=== PATIENT | male | born 1955 | race Caucasian/White ===

== ENCOUNTER 2017-06-23 20:19 | Inpatient (IN) | payer OTHER ==
[~2017-06-23] VITALS: Ht 175.3 cm; Wt 113.4 kg
[~2017-06-23 20:19] MED LIST: ALDACTONE25 MG PO; ASPIRIN EC325 MG PO; CHLORTHALIDONE25 MG PO; GLYXAMBI 25 MG1 EACH PO; IBUPROFEN800 MG PO; LANTUS SOL100 UNIT/1 SUB-Q; LOVASTATIN40 MG PO; METFORMIN HCL1000 MG PO; METOPROLOL SUC100 MG PO; NIFEDIPINE ER60 MG PO; NORCO 5-325 TA1 EACH PO; TELMISARTAN80 MG PO
[2017-06-23] MEDS ORDERED: GLUCOPHAGE1000 MG PO (20:55)
[2017-06-23] MEDS ORDERED: LANTUS SOL100 UNIT/1 SUB-Q (20:56)
[2017-06-23] MEDS ORDERED: MICARDIS20 MG PO (20:56)
[2017-06-23] MEDS ORDERED: GLYXAMBI 25 MG1 EACH PO (20:56)
[2017-06-23] MEDS ORDERED: ASPIRIN EC325 MG PO (20:57)
[2017-06-23] MEDS ORDERED: FISH OIL 1,2001 EAC1 PO (20:57)
[2017-06-23] MEDS ORDERED: VITAMIN D-32000 UNIT PO (20:57)
[2017-06-23] MEDS ORDERED: LOVASTATIN40 MG PO (20:58)
[2017-06-23] MEDS ORDERED: METOPROLOL SUC100 MG PO (20:59)
[2017-06-23] MEDS ORDERED: FLUOCINONIDE15 G1 TOP (21:00)
[2017-06-23] MEDS ORDERED: PROCARDIA XL60 MG PO (21:01)
--- NOTE | 2017-06-23 22:30 | NUR ---
PT ARRIVED FROM THE ED VIA STREATCH. ADMISSION AND ASSESSMENT COMPLETED. PT UP TO THE BATHROOM INDEPENTDENTLY TWICE DURING ADMISSION WITH LIQUID BLOODY STOOL. MEDICATIONS GIVEN. PT TO BE NPO AT MIDNIGHT. AT BEDSIDE. CALL LIGHT WITHIN REACH.
--- NOTE | 2017-06-23 23:51 | NUR ---
PT'S AT BEDSIDE. CPAP SET UP BY RT AT BEDSIDE. PT AWAKE AND ALERT. NO FURTHER NEEDS AT THIS TIME. CALL LIGHT WITHIN PLACE.
--- NOTE | 2017-06-24 02:17 | NUR ---
IN TO PT'S ROOM FOR CBG AND VITALS. PT AWAKE WATCHING TV. DENIES ABD PAIN. NO FURTHER NEEDS AT THIS TIME. CALL LIGHT IN REACH.
--- NOTE | 2017-06-24 02:31 | NUR ---
IN TO PT ROOM, PT UP TO BATHROOM INDEPENDENTLY. TELE IN PLACE. IVF INFUSING. PT NPO. NO FURTHER NEEDS AT THIS TIME. CALL LIGHT WITHIN REACH.
--- NOTE | 2017-06-24 04:21 | NUR ---
PT WAS ADMITTED FROM THE ER AT 2230 LAST NIGHT FOR A LOWER GI BLEED. AWAITING CONSULT FROM DR. STUART. PT HAS BEEN UP TO THE BATHROOM INDEPENDENTLY. HAS HAD SEVERAL LIQUID BLOODY STOOL. DENIES ABD PAIN AND NAUSEA. IVF AND PROTONIX DRIP INFUSING. NPO AT MIDNIGHT. YOLANDE, HOME CPAP IN ROOM. PT IS ALERT, ORIENTED AND PLEASANT.
--- NOTE | 2017-06-24 07:32 | NUR ---
MORNING ASSESSMENT DONE. PATIENT BLOOD GLUCOSE CHECK IS 166, REQUIRING 1 UNIT. HOLDING INSULIN AT THIS TIME RE: NPO STATUS. PATIENT DENIES PAIN, UP AD RAMONE TO HAVE LOOSE STOOL. PATIENT NOTES LESS BLOOD IN STOOL COMPARED TO PREVIOUS EPISODES.
--- NOTE | 2017-06-24 09:22 | NUR ---
PATIENT UP TO BM STOOL WITH SMALL AMOUNT OF BRIGHT RED BLOOD IN IT. IV PROTONIX CONTINUED FOR ONE MORE BAG. DR. PEREZ IN TO SEE PATIENT. PATIENT TO HAVE MIRILAX BOWEL PREP THIS MORNING.
--- NOTE | 2017-06-24 10:13 | NUR ---
PATIENT UP TO BATHROOM TO RADHA RED COAGULATED BLOOD. DR. PEREZ AND DR. STUART NOTIFIED. PATIENT HAS DRANK BOWEL PREP.
--- NOTE | 2017-06-24 11:14 | NUR ---
DR. STUART IN TO SEE PATIENT. PATIENT TO HAVE CLEAR LIQUIDS, NPO AT 3PM, PLAN TO SCOPE AT 7PM.
--- NOTE | 2017-06-24 11:30 | NUR ---
PT SLEEPING. STAFF ASKED NOT TO WAKEN HIM. STATING HE WAS UP ALOT WITH BOWEL PREP AND WAS VERY WIPED OUT.
--- NOTE | 2017-06-24 11:45 | NUR ---
SCHEDULED PTS OR CASE PER DRS ORDERS WITH OR CHARGE NURSE DEMARIO LANDRY.
[2017-06-24] MEDS ORDERED: FENOFIBRATE145 MG PO (11:56)
--- NOTE | 2017-06-24 11:57 | NUR ---
MED REC COMPLETE
--- NOTE | 2017-06-24 12:11 | NUR ---
PT LAYING IN BED, ALERT BUT NOT TOO TALKATIVE. SOMEWHAT HARD TO GET INFO OR CARRY ON A CONVERSATION. HIS SPOUSE BY HIS SIDE, MUCH DIFFERENT. SHE HELPED US BREAK THE ICE SO TO SPEAK, AND DISCOVERED WHAT HE DID AND REALIZED I HAD USED HIS SERVICES IN THE PAST. HE SAID FINALLY THAT HE WAS FEELING MUCH BETTER, AND I EXTENDED A BLESSING. WILL CONTINUE TO FOLLOW
--- NOTE | 2017-06-24 12:27 | NUR ---
6-PACK OF PLATELETS INFUSING, NO 15 MINUTE REACTION NOTED, IV RATE INCREASED TO 145ML/HOUR.
--- NOTE | 2017-06-24 16:00 | NUR ---
PT AGAIN IS SLEEPING. HAS CPAP IN PLACE, IS SNORING. DISCUSSED WITH STAFF AGAIN IF I CAN WAKE PATIENT UP. THEY STATED HE WAS VERY TIRED. STAFF STATES HE IS INDEPENDENT IN HIS ADL'S. LIVES WITH HIS . HAS A GOOD SUPPORT SYSTEM AND IS PLANNING TO RETURN HOME AT DISCHARGE. WILL FORGO ASSESSMENT AT THIS TIME.
--- NOTE | 2017-06-24 17:06 | NUR ---
PATIENT HAS FINISHED BOWEL PREP TODAY AND STOOL IS NOW CLEAR PALE GREEN. PATIENT CONTINUES TO BE NPO AFTER 3PM AND IS PLANNED TO HAVE COLONOSCOPY AT 7PM. IVF IS NS @ 75 PROTONIX DRIP IS CONTINUED. PATIENT IS AD RAMONE TO BATHROOM OR BEDSIDE COMMODE.
--- NOTE | 2017-06-24 18:49 | NUR ---
PATIENT TO SURGERY FOR COLON SCOPE.
--- NOTE | 2017-06-24 19:26 | NUR ---
06/24/171925 Guerline Arce 191-PATIENT ARRIVED TO PACU ON 3L CPAP REACTIVE RESPONDS TO QUESTIONS. DENIES PAIN OR NAUSEA. ABDOMEN SOFT AND ROUND ENCOURAGED TO PASS FLATUS. 1921-GLUCOSE CHECKED 123
--- NOTE | 2017-06-24 20:06 | NUR ---
PT ARRIVED BACK TO ROOM 112. ALERT AND ORIENTATED. DENIES PAIN. FOUND HEMMORIODS WHICH WILL NEED TO BE ADDRESSED LATER WITH DR. STUART. DR. STUART DISCUSSED THE FINDINGS WITH PT "JASON". TELE #7 IN SR @ 62. AFEBRILE. DR STUART STATED TO CONTACT DR. PEREZ FOR DISCHARGE PLANS. CONTACTED DR. PEREZ, WHO STATED TO KEEP PT OVERNIGHT. INFORMED PT AND OF SUCH CONVERSATION.
--- NOTE | 2017-06-24 22:48 | NUR ---
PT WITH CPAP ON, EYES CLOSED, BUT WOKE WHEN VITALS DONE. HAS VOIDED PRIOR TO THIS TIME, ATE SANDWICH AND PUDDING POST PROCEDURE. DENIES PAIN. WAS UP WITH SBA, STEADY ON FEET, DENIED DIZZINESS OR NAUSEA
--- NOTE | 2017-06-24 23:31 | NUR ---
PT CURRENTLY SLEEPING WITH CPAP MACHINE ON. WOKE EASILY FOR VS AT 2300. RESP EVEN AND UNLABORED.
--- NOTE | 2017-06-25 02:15 | NUR ---
PT MOSTLY SLEEPY, VITALS COMPLETED WITH PT WAKING UP FOR. HEARD PT PASSING GAS, BUT NO COMPLAINS OF ANY DISCOMFORT.
--- NOTE | 2017-06-25 03:45 | NUR ---
CALL LIGHT SOUNDED, PT WANTED SCD'S OFF SO HE COULD MOVE FREELY WITH TURNING. SAID HIS LEGS KEPT GETTING ALL TANGLED UP. USED THE URINAL WELL. CPAP CONTINUES, COMPLAINED OF RIGHT SHOULDER HURTING, CHRONIC PAIN IN SHOULDER DUE TO ROTATOR CUFF PROBLEMS. IV CONTINUES PER ORDER.
--- NOTE | 2017-06-25 06:02 | NUR ---
PT HAS MOSTLY SLEPT SINCE 2229 THIS SHIFT, WITH CPAP MACHINE ON. HE HAS USED THE URINAL X 1, WELL PASSED GAS. ONE PERSON SBA WHEN UP, IS STEADY ON FEET. NO BM'S, NO RECTAL BLEEDING NOTED TO THIS HOUR. HAS THE PICTURE OF THE COLONSCOPY, WELL THE HEMMORROID BOOKLET WHICH DR. STUART WROTE ABOUT A SPECIFIC CREAM TO PURCHASE AT [facility], FOR THE HEMMORROIDS. PT HAS NOT COMPLAINED OF NAUSEA, OR PAIN SINCE HE RETURNED TO THE FLOOR POST COLONSCOPY. IV CONTINUES AT 75 CC HOUR.
--- NOTE | 2017-06-25 08:21 | NUR ---
PATIENT WANTING TO D/C HOME, DOCTOR OK'D TELE AND IV TO COME OFF AT THIS TIME. IV IN THE RIGHT WRIST DC'D TIP INTACT. AM MEDICATION GIVEN AND ASSESSMENT COMPLETE. PATIENT HAS NO C/O PAIN AND NO BLEEDING AT THIS TIME.
[2017-06-25] MEDS ORDERED: PANTOPRAZOLE SO40 MG PO (08:26)
--- NOTE | 2017-06-26 14:06 | CONS ---
[facility] [address] [place], [place] [address] Signed DATE OF SERVICE: 06/24/2017 REFERRING PHYSICIAN: Dr. Rubi Garbiay CHIEF COMPLAINT: Rectal bleeding. HISTORY OF PRESENT ILLNESS: Albaro is a 62-year-old gentleman I met back in 2010 for his colonoscopy. He has some intermittent rectal bleeding, he does associate with internal hemorrhoids. 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 He told me his maternal aunt also had colon cancer. With his colonoscopy in 2010, we found some internal hemorrhoids, but nothing else. More recently, he has been using 325 mg of aspirin a day for his general health. Also, he has been using a large amount of ibuprofen because of his right shoulder pain that may explain why his creatinine is elevated as well. Yesterday, he started to have some bloody bowel movements, so he decided to come to the emergency room for evaluation. He received some initial Dulcolax and Mag citrate last night and pooped out some additional semi-clotted moderately dark blood. He has also been on some MiraLAX and Gatorade this morning with Internal Medicine service and has pooped out some additional semi-clotted blood. He has remained hemodynamically stable. Given his current findings, I was asked to see him as a general surgeon public relations sales marketing. PAST MEDICAL HISTORY: Diabetes. Hypertension. Hypercholesterolemia. Sleep apnea. Kidney stones. PAST SURGICAL HISTORY: Laparoscopic cholecystectomy. Cystoscopy with removal of kidney stone. Repair of his left hand requiring multiple surgeries after significant trauma around 2004. He had initial colonoscopy sometime before [address] Kevan Paz and was said to be negative. He had a colonoscopy with Dr. Stuart in 2010, which showed internal hemorrhoids. MEDICATIONS: Metformin. Fish oil. Micardis. Aspirin. Electronically Signed By: PAOLA STUART MD 06/26/17 1401 PATIENT NAME: ALBARO LÓPEZ CONSULTATION DATE OF : 53 PHYSICIAN: PAOLA STUART MD REPORT #: [id number] REPORT IS CONFIDENTIAL AND NOT TO BE RELEASED WITHOUT AUTHORIZATION [facility] [address] [place], [place] [address] Signed Vitamin D. Insulin. Spironolactone. Glyxambi. Fluocinonide. Nifedical. Metoprolol. Lovastatin. ALLERGIES: Oysters and meperidine. SOCIAL HISTORY: He does not smoke or drink. He is and has 2 children. 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 Dr. Hector Cortez is his primary care provider. Nidhi is his at [phone]. He prefers the [facility] pharmacy. He also has an ems coordinator. FAMILY HISTORY: His father had lung cancer. Paternal grandfather had some type of cancer. Maternal aunt had colon cancer. Heart disease in his maternal grandfather and mother. There has been no abnormal reaction to anesthesia. REVIEW OF SYSTEMS: He had 10 systems reviewed. He spoke of no significant issues since I have seen him last. He has been following along pretty closely with his primary care provider and his ems coordinator. 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 PHYSICAL EXAMINATION: VITAL SIGNS: Blood pressure is 123/67, his heart rate 60, respiratory rate 18, temperature is 97.1, he is 99% on 2 L. He is 5 feet 9 inches, 113 kg. GENERAL: Albaro is a 62-year-old gentleman who appears healthy than his stated age. His is with him in the room. He is alert and awake and interactive. He does not appear systemically ill or toxic. He is a pretty good historian. LUNGS: Clear to auscultation. HEART: Regular rate and rhythm. ABDOMEN: Obese, but benign. RECTAL: Not repeated at this time. LABORATORY DATA: His white blood cell count 8.4, hemoglobin was 14.5, it is now 13.3 with a mean cell volume of 78. BUN 28, creatinine is 1.28, glucose 151. INR 1, PTT 25. Liver function tests negative. ASSESSMENT AND PLAN: Electronically Signed By: PAOLA STUART MD 06/26/17 1406 PATIENT NAME: ALBARO LÓPEZ CONSULTATION DATE OF : 53 PHYSICIAN: PAOLA STUART MD REPORT #: [id number] REPORT IS CONFIDENTIAL AND NOT TO BE RELEASED WITHOUT AUTHORIZATION [address] [address] Signed Albaro is a 62-year-old gentleman who presents with what appears to be a lower gastrointestinal bleed most likely from his hemorrhoids. I explained to Albaro that 325 mg of aspirin a day is quite a bit. It may be worthwhile to go ahead and give him some platelets to s e e if we can get his bleeding to stop. We should continue his bowel prep today, and we will get him scoped first thing in the morning. If it turns out to be hemorrhoids, he might have to consider having hemorrhoid surgery but that would keep him out of the truck for few weeks. I reviewed all this with Stone and his Nidhi, and they have expressed understanding and agreed the above plan. MD MORGAN Gamez/Belinda /[id number] cc: Dr. Hector Cortez Electronically Signed By: PAOLA STUART MD 06/26/17 1406 PATIENT NAME: ALBARO LÓPEZ [place] CONSULTATION DATE OF : 53 PHYSICIAN: PAOLA STUART MD REPORT #: [id number] REPORT IS CONFIDENTIAL AND NOT TO BE RELEASED WITHOUT AUTHORIZATION
--- NOTE | 2017-06-26 14:06 | OR ---
[facility] [address] [place], [place] [address] Signed DATE OF SERVICE: 06/24/2017 PREOPERATIVE DIAGNOSES: Rectal bleeding. Hemorrhoids. Anemia. Daily aspirin use. POSTOPERATIVE DIAGNOSIS: Moderate irritated nonbleeding internal and external hemorrhoids. PROCEDURE: Colonoscopy without biopsy. ESTIMATED BLOOD LOSS: None. INDICATIONS: Albaro is a 62-year-old diabetic gentleman, I know from 2010 when we performed his colonoscopy. He had one prior colonoscopy over 10 years before that with Dr. Kevan Paz. When I did his colonoscopy in 2010, he had some internal hemorrhoid s, but otherwise no findings. He also uses the aspirin 325 mg daily. In addition, he has been using a significant amount of ibuprofen because of right shoulder pain. 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 We know he has had trouble with irritated hemorrhoids in the past. Today, above admission he was having a lot of blood per rectum in the toilet. He came into the emergency room for evaluation. He was admitted to our Internal Medicine Service. His hemoglobin was initially 14.5 and it dropped down to 13.3 with a mean cell volume of 78. INR was 1. His PTT was 25. Liver function tests were fine. His BUN was fine at 28, but his creatinine was up a little bit at 1.28. He was admitted by the internal med i cine service and he was given Dulcolax and magnesium citrate in middle of the night and the following morning, he was given additional Dulcolax along with MiraLAX and Gatorade. I have been consulted to see him as a general surgeon on-call. I met with Albaro and his , Nidhi, here in the hospital. This morning, he has had some additional blood so we decided we would continue his prep during the day and we made him n.p.o. at 3 this afternoon with the thought of doing his lower endoscopy about 7 o'clock tonight. Albaro is very familiar with colonoscopy. He understands there is risk including but not limited to gas bloating, crampy abdominal pain, bleeding, perforation requiring surgery, and missed diagnosis. Also because of his body habitus with a very full f maikel jaw, very full neck and so forth, we asked that an anesthesia provider help us with increased monitoring and sedation with propofol as well as airway control. He also uses CPAP mask, which we utilized for a procedure today. He and his expressed understanding and wished to proceed. Electronically Signed By: PAOLA STUART MD 06/26/17 1406 PATIENT NAME: ALBARO LÓPEZ OPERATIVE REPORT DATE OF : 53 PHYSICIAN: PAOLA STUART MD REPORT #: [id number] REPORT IS CONFIDENTIAL AND NOT TO BE RELEASED WITHOUT AUTHORIZATION [address] [address] Signed PROCEDURE NOTE: Albaro was taken into our endoscopy suite and placed in a left lateral decubitus position. We had placed his CPAP mask with his help and then he was given propofol for sedation. A digital rectal exam was per formed and he has significant external hemorrhoids. They were moderate in size and I can see they are a little irritated. After this, the adult colonoscope was introduced and advanced all around into the cecum under direct visualization with camera without difficulty. His prep was quite good. The scope was then slowly withdrawn. There was no pathology throughout the entire colon or rectum and there was no evidence of any bleeding in the colon or rectum. Once the scope had been retroflexed in the rectum, we could see his irritated, moderately enlarged internal hemorrhoids. Multiple areas were irritated. There were multiple hemorrhoid columns. No active bleeding at this time. He did receive platelets earlier today and he said afterwards his bleeding had stopped. The gas was suctioned out. The colonoscope removed. Albaro tolerated the procedure quite well. RECOMMENDATIONS: Albaro will be returned to his room. Started back on his diabetic diet and his chronic medications. He will be discharged per the Internal Medicine Service. He needs to come by my office in the next few weeks and we will need to talk about treatment for the hemorrhoids either some banding and/or formal hemorrhoidectomy. I think this will be an ongoing issue for Albaro until he addresses the hemorrhoids. In addition, he might consider reducing his dose of aspirin from 325 mg down to 81 mg. I told Albaro and his family I will leave that up to him and his primary care provider. Paola Stuart MD AB/Modl /[id number] cc: JOSUE MACHADO MD Electronically Signed By: PAOLA STUART MD 06/26/17 1406 PATIENT NAME: ALBARO LÓPEZ OPERATIVE REPORT DATE OF : 53 PHYSICIAN: PAOLA STUART MD REPORT #: [id number] REPORT IS CONFIDENTIAL AND NOT TO BE RELEASED WITHOUT AUTHORIZATION
== END 2017-06-25 08:50 | disposition home or self-care (01) | DRG 394 ==
LOC: ED 20:19 → MS 22:20
PROVIDERS: Colon & Rectal Surgery; ADMIT Internal Medicine
PROC: 0DJD8ZZ Inspection of Lower Intestinal Tract, Via Natural or Artificial Opening Endoscopic (ICD-10-PCS; principal; 2017-06-24 19:00)
DX: K64.8 Other hemorrhoids (principal); K92.1 Melena; D62 Acute posthemorrhagic anemia; E11.9 Type 2 diabetes mellitus without complications; Z79.4 Long term (current) use of insulin; E78.00 Pure hypercholesterolemia, unspecified; I10 Essential (primary) hypertension; G47.33 Obstructive sleep apnea (adult) (pediatric); Z90.49 Acquired absence of other specified parts of digestive tract; Z79.82 Long term (current) use of aspirin
CPT/HCPCS: 00810; 36415; 36430; 80048; 80053; 85018; 85025; 85610; 85730; 86850; 86900; 86901; 96361; 96374; 99285; J1200; J2704; J7030; J7040; P9035

== ENCOUNTER 2019-03-31 06:30 | Day surgery (SDC) | payer OTHER ==
[~2019-03-31] VITALS: Ht 177.8 cm; Wt 113.8 kg
[~2019-03-31 06:30] MED LIST changes: +FENOFIBRATE145 MG PO; +FISH OIL 1,2001 EAC1 PO; +FLUOCINONIDE15 G1 TOP; +GLUCOPHAGE1000 MG PO; +JARDIANCE25 MG PO; +MICARDIS20 MG PO; +PANTOPRAZOLE SO40 MG PO; +PROCARDIA XL60 MG PO; +VITAMIN D-32000 UNIT PO
[2019-03-31] MEDS ORDERED: TRULICITY1.5 MG/0.5 IM (07:03)
[2019-03-31] MEDS ORDERED: FLOMAX0.4 MG PO (07:04)
[2019-03-31] MEDS ORDERED: CRESTOR20 MG PO (07:04)
--- NOTE | 2019-03-31 08:13 | NUR ---
03/31/19 [address]e SN 0752- PT ARRIVES IN PACU. RESPS ARE EVEN AND UNLABORED. PT 02 SAT MID TO HIGH 90'S ON 2L VIA NC. PT IS ASLEEP WITH EYES CLOSED BUT RESPONDS TO VERBAL STIMULI. DENIES PAIN NAUSEA AND DIZZINESS AT THIS TIME. 0758- PT IS RESTING IN BED WITH EYES CLOSED. PT IS AUDIBLY SNORING BUT WAKES EASILY TO VERBAL SITMULI. RESPS ARE EVEN AND UNLABORED. 02 SAT LOW TO MID 90S ON 2L VIA NC. PT DENIES PAIN NAUSEA AND DIZZINESS AT THIS TIME. 0803- PT 02 REMOVED AT THIS TIME. PT TOLERATING WELL. 02 SAT LOW TO MID 90'S ON RA. RESPS EVEN AND UNLABORED. PT DENIES PAIN NAUSEA AND DIZZINESS. 0809- PT REQUESTED WATER AT THIS TIME. PT SITTING IN LOW FOWLERS POSITION PER REQUEST AND DRINKING WATER. TOLERATING WELL.
--- NOTE | 2019-03-31 18:36 | OR ---
[facility] [address] [place], [place] [address] Signed DATE OF OPERATION: 03/31/2019 SURGEON: Paola Stuart MD PREOPERATIVE DIAGNOSIS: Melena. POSTOPERATIVE DIAGNOSES: 1. Cumy-in-ccjpyaqq gastroduodenitis. 2. Mild diabetic gastroparesis. PROCEDURES: EGD with CLOtest and biopsies of the pyloric bulb, antrum, and GE junction. ESTIMATED BLOOD LOSS: None. INDICATIONS: Albaro is a 63-year-old gentleman I have known for many years. He has a long history of fairly complicated diabetes. He ended up with some melena and made him pretty nervous. He said he has been off his aspirin and his fish oil. He has been through upper and lower endoscopy in the past. He is very aware of those procedures. He said his stool has been turning brown and by today it is back to being brown. However, he wanted to come and ask for an upper endoscopy given his current findings. He is still working, driving truck for a local company. He said it is a little stressful and he says will retire any day. He. In the office, I gave Albaro a pamphlet on upper endoscopy. We looked at that together in detail. He understands the nature of the test along with its risks including, but not limited to gas bloating, crampy abdominal pain, bleeding, perforation, requiring surgery, and missed diagnosis. He had expressed understanding and wished to proceed. PROCEDURE NOTE: Albaro was taken into our endoscopy suite and placed in the supine semi-recumbent position. He was given 4 mg of Versed and 100 mcg of fentanyl to cover the case. A bite block was utilized for the case. He was given lidocaine spray the posterior oropharynx. The adult gastroscope was introduced and advanced all the way out into the third portion of the duodenum under direct visualization of camera without difficulty. The duodenum was unremarkable. The pyloric bulb showed patchy erythematous changes similar to the stomach. No obvious ulceration in the pyloric bulb or the stomach. We took biopsies from the pyloric bulb as well as the antrum for pathologic review. We Electronically Signed By: PAOLA STUART MD 03/31/19 1836 PATIENT NAME: ALBARO LÓPEZ OPERATIVE REPORT DATE OF : 53 REPORT #: [id number] PHYSICIAN: PAOLA STUART MD PCP: HANSEL MCDUFFIE MD REPORT IS CONFIDENTIAL AND NOT TO BE RELEASED WITHOUT AUTHORIZATION [facility] [address] [place], [place] [address] Signed took an additional biopsy from the antrum for CLOtest. Upon retroflexion of the scope, he seems to have a good. He has a good cardiac. He has a good GE junction. No evidence of an obvious hiatal hernia. No gastric or esophageal varices. The scope was withdrawn up to the area of the GE junction, which was compliant without stricture. It possibly has just a very small tiny hiatal hernia. He does have some mild disruption to the Z-line. We went ahead and took biopsies from this area for pathologic review. There was no Saunders's mucosa. No esophagitis in the distal middle or upper esophagus. After this, the gas was suctioned out the gastroscope removed. Albaro tolerated the procedure quite well. RECOMMENDATIONS: I will see Albaro back in my office in 7 to 10 days to review his results. He might consider using an H2 justin for the next few weeks to help settle his stomach. In addition, he did have food in his stomach and it is consistent with his significant diabetes and gastroparesis. Paola Stuart MD ALB/MODL /[id number] cc: MD Osiris Christensen ARNP Gwen Libby, MD Copies: PAOLA STUART MD, EMILY ARNP ~ Electronically Signed By: PAOLA STUART MD 03/31/19 1836 PATIENT NAME: ALBARO LÓPEZ [place] OPERATIVE REPORT DATE OF : 53 REPORT #: [id number] PHYSICIAN: PAOLA STUART MD PCP: HANSEL MCDUFFIE MD REPORT IS CONFIDENTIAL AND NOT TO BE RELEASED WITHOUT AUTHORIZATION
== END 2019-03-31 08:50 | disposition home or self-care (01) ==
LOC: DS 06:30 → OPS 06:30 → DS 06:45 → OPS 08:50
PROVIDERS: Colon & Rectal Surgery
PROC: 0DB48ZX Excision of Esophagogastric Junction, Via Natural or Artificial Opening Endoscopic, Diagnostic (ICD-10-PCS; 2019-03-31)
PROC: 0DB98ZX Excision of Duodenum, Via Natural or Artificial Opening Endoscopic, Diagnostic (ICD-10-PCS; 2019-03-31)
PROC: 0DB78ZX Excision of Stomach, Pylorus, Via Natural or Artificial Opening Endoscopic, Diagnostic (ICD-10-PCS; principal; 2019-03-31 06:45)
DX: K29.80 Duodenitis without bleeding (principal); K21.0 Gastro-esophageal reflux disease with esophagitis; K22.70 Barrett's esophagus without dysplasia; E11.43 Type 2 diabetes mellitus with diabetic autonomic (poly)neuropathy; K31.84 Gastroparesis; K92.1 Melena; E11.9 Type 2 diabetes mellitus without complications; E78.5 Hyperlipidemia, unspecified; Z88.5 Allergy status to narcotic agent; Z88.8 Allergy status to other drugs, medicaments and biological substances; Z79.4 Long term (current) use of insulin; Z79.899 Other long term (current) drug therapy
CPT/HCPCS: 86677; G0500; J2250; J3010; J7120